=== PATIENT | female | born 1975 | race Caucasian/White ===

== ENCOUNTER 2016-11-27 05:31 | Emergency (ER) | payer MEDICAID ==
[2014-05-20 09:17] VITALS: BMI 28.3
[~2016-11-27 05:31] MED LIST: ATIVAN1 MG PO; DEMEROL50 MG PO; NEURONTIN 300300 MG PO; NORCO 10/325 TA1 TA1 PO; NORCO 7.5/325 T1 TA1 PO; XANAX1 MG PO
== END 2016-11-27 06:55 | disposition home or self-care (01) ==
LOC: D.ER 05:31
DX: M25.551 Pain in right hip (principal); F17.200 Nicotine dependence, unspecified, uncomplicated

== ENCOUNTER 2016-12-02 20:11 | Emergency (ER) | payer MEDICAID ==
[2014-05-20 09:17] VITALS: BMI 28.3
== END 2016-12-02 22:11 | disposition left against medical advice (07) ==
LOC: D.ER 20:11
DX: R42 Dizziness and giddiness (principal); F19.10 Other psychoactive substance abuse, uncomplicated

== ENCOUNTER → 2017-01-02 09:30 | Outpatient (CLI) | payer MEDICAID ==
[2014-05-20 09:17] VITALS: BMI 28.3
[~2017-01-02 09:30] MED LIST changes: +HYSINGLA ER20 MG PO
== END | disposition home or self-care (01) ==
LOC: D.MRI 09:30
DX: M54.16 Radiculopathy, lumbar region (principal)

== ENCOUNTER 2017-01-04 09:00 | Day surgery (SDC) | payer MEDICAID ==
[~2017-01-04] VITALS: Ht 152.4 cm; Wt 67.6 kg
--- NOTE | ~2017-01-04 | OP ---
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 PROCEDURE: Lumbar laminectomy, medial facetectomy and foraminotomy with discectomy L3-L4 right with METRx retractor. SURGEON: Vladimir Ross MD. DESCRIPTION AND TECHNIQUE: After induction of general endotracheal anesthesia, the patient was rolled prone on the Temo frame. Lumbar spine was prepped and draped in usual sterile fashion. Fluoroscopic x-ray and spinal needle localized the L3-L4 interspace on the right side. A stab incision was created with #11 blade with a series of dilators which were used to advance a METRx retractor to the L3-L4 interspace on the right side. The level was confirmed with fluoroscopic x-ray. A microscope and Midas Chicho drill were used to perform laminectomy, medial facetectomy and foraminotomy at L3-L4 on the right. Hypertrophied ligamentum flavum was removed with Cloward rongeurs. Following this, there was an obvious ventral disc compression of the dura. A ball-tip nerve hook was used to remove several large disc fragments from the canal, this decompressed the dura completely. Additional disc material was removed from the L3-L4 disc space. The spinal canal was searched for any additional fragments, none were found. Meticulous hemostasis was maintained throughout the wound. The wound was then irrigated with copious amounts of Ancef irrigant solution. The fascia was closed with a 2-0 Vicryl suture. The subdermal layer was closed with 3-0 Vicryl suture. The skin was reapproximated with Steri-Strips and benzoin. A sterile dressing was applied to the wound. The patient was awakened in good condition and taken to recovery. All counts were reported as correct. Estimated blood loss was minimal. 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
[2017-01-04 09:55] VITALS: BP 114/73; Ht 152.4 cm; Wt 67.6 kg
[2017-01-04 10:29] LABS: HEMATOCRIT 37.8 % (36.0-48.0); HEMOGLOBIN 13.4 g/dL (12-16); MCH 31.3 pg (26.0-34.0); MCHC 35.4 g/dL (31.0-37.0); MCV 88.3 fL (80.0-100.0); MEAN PLATELET VOLUME 9.4 fL (7.4-10.4); RBC 4.28 10x6/uL (4.00-5.40); RDW 13.7 % (11.5-14.5); WBC 7.4 10x3/uL (4.8-10.8)
--- NOTE | 2017-01-04 17:31 | NUR ---
1705 BACK FROM LAMINECTOMY DISCETOMY. BACK DRESSING AREA CIRCLED WITH SMALL AMT DRAINAGE. PAIN 2. DENIES NUMBNESS OR TINGLING. RESP EVEN AND NONLABORED. FAMILY PRESENT AND C/L IN REACH.
--- NOTE | 2017-01-04 19:20 | NUR ---
1735 DRESSING TO BACK NO FURTHER DRAINAGE NO BLEEDING. DENIES PAIN.
--- NOTE | 2017-01-04 19:21 | NUR ---
1805 UP AND WALKED NO NUMBNESS. UP AND VOIDED NO CHANGE TO DRESSING AREA MARKED.
--- NOTE | 2017-01-04 19:22 | NUR ---
1830 TO HOME WITH SISTER VIA [facility].
--- NOTE | 2017-01-04 19:22 | NUR ---
1814 IV DCD CATHETER INTACT. WENT OVER DISCHARGE INSTRUCTIONS AND VERBALLY UNDERSTANDS.
== END 2017-01-04 18:30 | disposition home or self-care (01) ==
LOC: D.OPS 09:00 → D.PAN 12:00 → D.OPS 12:00
PROVIDERS: Anesthesiology
DX: M51.16 Intervertebral disc disorders with radiculopathy, lumbar region (principal); F17.200 Nicotine dependence, unspecified, uncomplicated; M19.90 Unspecified osteoarthritis, unspecified site; Z01.812 Encounter for preprocedural laboratory examination

== ENCOUNTER 2017-04-16 18:42 | Emergency (ER) | payer MEDICAID ==
[2017-01-04 09:55] VITALS: BMI 29.1
[2017-04-16 20:52] LABS: APPEARANCE CLEAR (CLEAR); COLOR YELLOW (YELLOW); GLUCOSE NEGATIVE (NEGATIVE); KETONE NEGATIVE (NEGATIVE); NITRITE NEGATIVE (NEGATIVE); PROTEIN NEGATIVE (NEGATIVE); UROBILINOGEN NORMAL (NORMAL)
[2017-04-16 20:53] LABS: BILIRUBIN NEGATIVE (NEGATIVE)
[2017-04-16 20:55] LABS: BACTERIA FEW /hpf (NONE SEEN); EPITHELIAL CELLS 0-5 /hpf (0-5)
== END 2017-04-16 21:34 | disposition home or self-care (01) ==
LOC: D.ER 18:42
PROVIDERS: Physician Assistant Medical
DX: S39.012A Strain of muscle, fascia and tendon of lower back, initial encounter (principal); X50.0XXA Overexertion from strenuous movement or load, initial encounter; Y93.89 Activity, other specified; Y92.029 Unspecified place in mobile home as the place of occurrence of the external cause; M62.838 Other muscle spasm; N39.0 Urinary tract infection, site not specified

== ENCOUNTER 2017-09-10 14:06 | Emergency (ER) | payer MEDICAID ==
[2017-01-04 09:55] VITALS: BMI 29.1
== END 2017-09-10 16:06 | disposition home or self-care (01) ==
LOC: D.ER 14:06
DX: M54.5 Low back pain (principal); S39.012A Strain of muscle, fascia and tendon of lower back, initial encounter; X50.0XXA Overexertion from strenuous movement or load, initial encounter; X50.9XXA Other and unspecified overexertion or strenuous movements or postures, initial encounter; Y93.89 Activity, other specified; Y92.019 Unspecified place in single-family (private) house as the place of occurrence of the external cause

== ENCOUNTER 2017-10-26 18:22 | Emergency (ER) | payer MEDICAID ==
[2017-01-04 09:55] VITALS: BMI 29.1
[2017-10-26 19:04] LABS: APPEARANCE CLEAR (CLEAR); BILIRUBIN NEGATIVE (NEGATIVE); COLOR DK YELLOW (YELLOW); GLUCOSE NEGATIVE (NEGATIVE); KETONE NEGATIVE (NEGATIVE); NITRITE NEGATIVE (NEGATIVE); PROTEIN NEGATIVE (NEGATIVE); UROBILINOGEN NORMAL (NORMAL)
== END 2017-10-26 19:28 | disposition home or self-care (01) ==
LOC: D.ER 18:22
PROVIDERS: Family Medicine
DX: M25.572 Pain in left ankle and joints of left foot (principal); M25.571 Pain in right ankle and joints of right foot; M79.672 Pain in left foot; M79.671 Pain in right foot

== ENCOUNTER 2018-05-31 10:56 | Emergency (ER) | payer MEDICAID ==
[~2018-05-31] VITALS: Ht 152.4 cm; Wt 63.6 kg
[2018-05-31 11:04] VITALS: Ht 152.4 cm; Wt 63.6 kg
[2018-05-31 12:06] LABS: ALBUMIN 4.2 g/dL (3.4-5.0); ALKALINE PHOSPHATASE 123 U/L (46-116); ALT (SGPT) 22 U/L (10-68); BILIRUBIN - TOTAL 1.21 mg/dL (0.2-1.3); CALC OSMOLALITY 271 mosm/kg (275-300); CALCIUM 9.4 mg/dL (8.5-10.1); CHLORIDE - SERUM 98 mmol/L (98-107); GLUCOSE 108 mg/dL (74-106); POTASSIUM - SERUM 4.1 mmol/L (3.5-5.1); PROTEIN - SERUM 8.7 g/dL (6.4-8.2); SODIUM 135 mmol/L (136-145); UREA NITROGEN 14 mg/dL (7-18); eGFR NON AFRICAN AMERICAN 64 mL/min (90-120)
[2018-05-31 12:12] LABS: BASOPHILS 0.1 % (0-2); EOSINOPHILS 0.2 % (0-7); HEMATOCRIT 38.1 % (36.0-48.0); HEMOGLOBIN 13.8 g/dL (12-16); IMMATURE GRANULOCYTES 0.2 % (0-5); LYMPHOCYTES 17.7 % (15-50); MCH 31.9 pg (26.0-34.0); MCHC 36.2 g/dL (31.0-37.0); MEAN PLATELET VOLUME 9.2 fL (7.4-10.4); MONOCYTES 5.4 % (2-11); NEUTROPHILS 76.4 % (40-80); PLATELET COUNT 398 10x3/uL (130-400); RBC 4.33 10x6/uL (4.00-5.40); RDW 12.9 % (11.5-14.5); WBC 8.4 10x3/uL (4.8-10.8)
[2018-05-31 12:16] LABS: THYROID STIMULATING HORMONE 0.53 uIU/mL (0.36-3.74); TROPONIN-I < 0.017 ng/mL (0.000-0.060)
[2018-05-31] MEDS ORDERED: VISTARIL25 MG PO (13:06)
[2018-05-31 14:19] VITALS: BP 153/102
== END 2018-05-31 13:30 | disposition home or self-care (01) ==
LOC: D.ER 10:56
PROVIDERS: Family Medicine
DX: F41.9 Anxiety disorder, unspecified (principal); R06.00 Dyspnea, unspecified

== ENCOUNTER 2018-11-11 14:12 | Emergency (ER) | payer MEDICAID ==
[~2018-11-11] VITALS: Ht 152.4 cm; Wt 68.2 kg
[~2018-11-11 14:12] MED LIST changes: +VISTARIL25 MG PO
[2018-11-11 14:25] VITALS: Ht 152.4 cm; Wt 68.2 kg
[2018-11-11] MEDS ORDERED: TALWIN NX1 TAB PO (15:36)
[2018-11-11] MEDS ORDERED: BACLOFEN20 M1 PO (15:36)
[2018-11-11 16:16] VITALS: BP 128/82
== END 2018-11-11 16:15 | disposition home or self-care (01) ==
LOC: D.ER 14:12
DX: M54.5 Low back pain (principal)

== ENCOUNTER 2019-08-18 17:50 | Emergency (ER) | payer MEDICAID ==
[~2019-08-18] VITALS: Ht 152.4 cm; Wt 80.5 kg
[~2019-08-18 17:50] MED LIST changes: +BACLOFEN20 M1 PO; +TALWIN NX1 TAB PO
[2019-08-18 18:02] VITALS: BP 144/93; Ht 152.4 cm; Wt 80.5 kg
== END 2019-08-18 19:17 | disposition left against medical advice (07) ==
LOC: D.ER 17:50
DX: M54.5 Low back pain (principal)

== ENCOUNTER 2019-08-22 19:54 | Emergency (ER) | payer MEDICAID ==
[~2019-08-22] VITALS: Ht 152.4 cm; Wt 80.5 kg
[2019-08-22 20:18] VITALS: Ht 152.4 cm; Wt 80.5 kg
[2019-08-22] MEDS ORDERED: NEURONTIN 300300 MG (20:21)
[2019-08-22] MEDS ORDERED: MOBIC7.5 MG PO (20:22)
[2019-08-22] MEDS ORDERED: REMERON15 MG PO (20:22)
[2019-08-22] MEDS ORDERED: BUSPAR10 MG PO (20:22)
[2019-08-22 22:00] VITALS: BP 152/86
== END 2019-08-22 22:00 | disposition home or self-care (01) ==
LOC: D.ER 19:54
DX: J06.9 Acute upper respiratory infection, unspecified (principal); J44.9 Chronic obstructive pulmonary disease, unspecified

== ENCOUNTER 2020-08-27 04:07 | Emergency (ER) | payer MEDICAID ==
[~2020-08-27] VITALS: Ht 152.4 cm; Wt 70.5 kg
[~2020-08-27 04:07] MED LIST changes: +BUSPAR10 MG PO; +KEFLEX500 MG PO; +MACROBID100 MG PO; +MOBIC7.5 MG PO; +NEURONTIN 300300 MG; +REMERON15 MG PO
[2020-08-27 04:13] VITALS: Ht 152.4 cm; Wt 70.5 kg
[2020-08-27] MEDS ORDERED: IBUPROFEN600 MG PO (04:19)
[2020-08-27 05:02] VITALS: BP 129/76
== END 2020-08-27 05:01 | disposition home or self-care (01) ==
LOC: D.ER 04:07
DX: M54.9 Dorsalgia, unspecified (principal); G89.29 Other chronic pain

== ENCOUNTER 2020-10-12 14:01 | Emergency (ER) | payer MEDICAID ==
[~2020-10-12] VITALS: Ht 152.4 cm; Wt 72.7 kg
[~2020-10-12 14:01] MED LIST changes: +IBUPROFEN600 MG PO
[2020-10-12 14:10] VITALS: BP 105/52; Ht 152.4 cm; Wt 72.7 kg
[2020-10-12] MEDS ORDERED: LYRICA100 MG PO (14:12)
[2020-10-12] MEDS ORDERED: LISINOPRIL10 MG PO (14:13)
== END 2020-10-12 17:04 | disposition left against medical advice (07) ==
LOC: D.ER 14:01
DX: M54.9 Dorsalgia, unspecified (principal)